=== PATIENT | male | born 1985 | race Asian ===

== ENCOUNTER 2017-10-17 08:54 | Emergency (ER) | payer OTHER ==
[2017-10-17 10:08] LABS: #Basophils 0.1 thou/uL (0.0-0.2); #Lymphocytes 1.9 thou/uL (1.20-3.40); #Monocytes 1.1 thou/uL (0.11-0.59); #Neutrophils 8.3 thou/uL (1.40-6.50); %Basophils 1.2 % (0.0-1.0); %Eosinophils 0.3 % (0.0-10.0); %Lymphocytes 16.6 % (21.0-51.0); %Monocytes 9.5 % (0.0-10.0); %Neutrophils 72.4 % (42.0-75.0); Hemoglobin 14.7 g/dL (14.0-18.0); Mean Corpuscular HGB CONC 34.1 g/dL (32.0-36.0); Mean Corpuscular Hemoglobin 26.8 pg (27.0-31.0); Mean Corpuscular Volume 78.5 fl (80.0-94.0); Mean Platelet Volume 6.9 fL (7.4-10.4); Platelet Count 239 thou/uL (130-400); RBC Distribution Width 11.7 % (11.5-14.5); Red Blood Cell (RBC) Count 5.48 mill/uL (4.70-6.10); White Blood Cell (WBC) Count 11.5 thou/uL (4.8-10.8)
[2017-10-17 10:16] LABS: Prothrombin Time 13.4 SEC (12.0-14.7)
[2017-10-17 10:17] LABS: D-Dimer Test 0.49 *mcg/mL (0.27-0.43)
[2017-10-17 10:20] LABS: ALT (SGPT) 61 U/L (8-55); AST (SGOT) 40 U/L (5-34); Albumin 4.3 g/dL (3.5-5.0); Alkaline Phosphatase 88 U/L (40-150); Anion Gap 16 mmol/L (10-20); BUN (Urea Nitrogen) 7 mg/dL (8.9-20.6); Bilirubin, Total 0.5 mg/dL (0.2-1.2); Calc. Creatinine Clearance 0 mL/min (70-130); Calcium 9.6 mg/dL (7.8-10.44); Carbon Dioxide 22 mmol/L (22-29); Chloride 98 mmol/L (98-107); Estimated GFR-MDRD Greater than 90; Globulin 4.3 g/dL (2.4-3.5); Glucose 108 mg/dL (70-105); Potassium 3.6 mmol/L (3.5-5.1); Protein, Total 8.6 g/dL (6.0-8.3); Sodium 132 mmol/L (136-145)
--- NOTE | 2017-10-17 10:44 | RAD ---
SINGLE VIEW CHEST: Date: 10/17/17 COMPARISON: None. HISTORY: Cough and chest pain. FINDINGS: Single view of the chest shows a normal sized cardiomediastinal silhouette. There is no evidence of c onsolidation, mass, or pleural effusion. The bones are unremarkable. IMPRESSION: No evidence of acute cardiopulmonary disease. POS: [facility]
[2017-10-17] MEDS ORDERED: Sodium Chloride 0.9% 100 ML ONE (11:12)
[2017-10-17] MEDS ORDERED: cefTRIAXone\\ROCEPHIN 1 GM VIAL ONE (11:12)
--- NOTE | 2017-10-17 11:47 | CT ---
CT PULMONARY ANGIOGRAM WITH IV CONTRAST AND 3D MIP RECONSTRUCTIONS: Date: 10/17/17 PROVIDED CLINICAL HISTORY: Chest pain, cough, and yellow sputum. FINDINGS: The heart, pericardium, and great vessels demonstrate an unremarkable CT appearance. There is no evid ence for central or segmental pulmonary embolus. There is no evidence for thoracic lymph node enlargement. The airway appears patent and of normal caliber. There is patchy focal consolidation present within the left lower lobe and to a lesser extent within the left upper lobe. Lungs appear otherwise clear. No pleural fluid or pneumothorax apparent. Fatty infiltration of the liver is noted. The visualized portions of the upper abdomen appear otherwi se unremarkable. The osseous structures demonstrate no concerning osteoblastic or osteolytic lesions. IMPRESSION: 1. No evidence for central or segmental pulmonary embolus. 2. Consolidation within the left upper and left lower lobes, compatible with pneumonia in the approp riate clinical context. POS: [facility]
== END 2017-10-17 14:00 | disposition home or self-care (01) ==
LOC: SCSER 08:54
DX: J18.9 Pneumonia, unspecified organism (principal); E78.5 Hyperlipidemia, unspecified; I10 Essential (primary) hypertension; Z79.899 Other long term (current) drug therapy
CPT/HCPCS: 71045; 71275; 80053; 85025; 85379; 85610; 93005; 96361; 96365; J0696; J7050